=== PATIENT | male | born 1985 | race Hispanic/Latino ===

== ENCOUNTER 2024-09-04 08:53 | Emergency (ER) | payer BC ==
[~2024-09-04] VITALS: Ht 175.3 cm; Wt 120.2 kg
--- NOTE | 2024-09-04 09:27 | ERN ---
ED Note History of Present Illness Stated Complaint: CHEST TIGHTNESS/PRESSURE X ONE WEEK Chief Complaint: Chest Wall Pain Time Seen by MD: 08:56 Dictation: The patient is a 39-year-old male with morbid obesity and no notable medical history who presented to the emergency department today, reporting a primary complaint of pressure type of, left-sided chest pain that has persisted for the past ten days. He has experienced ongoing chest pain for several years; however, the intensity has increased significantly over the last week and a half. The patient characterizes the pain as a sensation of heaviness on his chest, describing it as a compression-type pain rated at 7 out of 10, which radiates to his shoulder and back. He also reports experiencing chest pain during physical exertion and difficulty breathing when active. The patient attributes his condition to work-related stress and anxiety stemming from long hours, indicating a lack of attention to his health. The patient's daughter was concerned about his health and send him to ER for further evaluation. Additionally, he is at high risk for sleep apnea and has not seen a primary care physician due to a lack of insurance. The patient admits to daily marijuana use in relation to his chronic chest pain. Denies any history of heart burn, dizziness, nausea, vomiting, cough, fever, sore throat or recent illnesses. Allergies: Coded Allergies: No Known Allergies (Unverified Allergy, Unknown, 09/04/24) Past Medical History Past Medical History: No Pertinent History Surgical History: Cholecystectomy Surgical History Other: KNEE Review of System Dictation REVIEW OF SYSTEMS CONSTITUTIONAL: Denies fevers, chills, or night sweats. No unintentional weight loss reported. NEUROLOGICAL: Denies headache, amaurosis fugax, motor weakness, sensory deficit, vertigo/spinning sensation, gait abnormalities, or tremors. ENT: No hearing loss, otalgia, otorrhea, rhinitis, rhinorrhea, hoarseness, or sore throat. CARDIOVASCULAR: C/o compression type of chest pain, SOB with exertion, no exertional angina, dyspnea on exertion, orthopnea, paroxysmal nocturnal dyspnea, palpitations, life-threatening arrhythmias, claudication. PULMONARY: Denies any shortness of breath, cough, phlegm/sputum, hemoptysis, pleuritic chest pain. SLEEP: Denies morning headaches, daytime somnolence or napping. Denies difficulty falling asleep, staying asleep, waking from sleep. Denies knowledge of snoring. GASTROINTESTINAL: Denies any type of dysphagia to either liquids or solids. Denies nausea, vomiting, pyrosis, early satiety, abdominal pain, diarrhea, constipation, or changes in stool consistency or caliber. Denies coffee-ground emesis, hematemesis, hematochezia, or melanotic stools. GENITOURINARY: Denies frequency, urgency, nocturia, hematuria or incontinence (Storage/Irritative symptoms.) Low urinary stream, straining to void, urinary intermittency or hesitancy, splitting of the voiding stream, terminal dribbling. ENDOCRINOLOGIC: Denies polyuria, polydipsia, polyphagia or heat/cold intolerances. HEMATOLOGIC: Denies thrombophilia/previous clots, or coagulopathy/bleeding disorders. ONCOLOGIC: Denies personal history of malignancy. DERMATOLOGIC: Denies rashes or pruritus. PSYCHIATRIC: Denies any suicidal or homicidal ideation. Denies hallucinations. Initial Vital Sign VS Vital Signs Date Time Temp Pulse Resp B/P (MAP) Pulse Ox O2 Delivery O2 Flow Rate FiO2 09/04/24 08:54 97.9 52 16 143/73 0 Room Air 0 09/04/24 09:01 21 Physical Exam Dictation PHYSICAL EXAM GENERAL APPEARANCE: The patient is awake, alert, and oriented, in no acute cardiopulmonary distress. NEUROLOGICAL: Cranial nerves II-XII grossly intact. Motor is 5/5 in bilateral upper and lower extremities proximal to distal. No sensory deficits. HEENT: Face is symmetric. Pupils are equal and reactive. Extraocular movements are intact. NECK: Supple. No JVD. No thyromegaly. No submental, submandibular, pre- /postauricular, occipital or supraclavicular lymphadenopathy. CHEST: Normal chest expansion. No Telemetry. LUNGS: Absence of any rales, rhonchi or any wheezing. CARDIOVASCULAR: Regular. S1 and S2 normal. No appreciable rubs, murmurs or gallops. ABDOMEN: Soft, nontender, and nondistended. There is no rebound, voluntary guarding, or rigidity. : Deferred. No Smith. EXTREMITIES: Non-edematous and not cyanotic. No clubbing. Good capillary refill. SKIN: No skin breakdown. Results (Laboratory/Radiology) Laboratory/Radiology Laboratory Tests Test 09/04/24 09:45 White Blood Count 8.6 K/uL (4.8-10.8) Red Blood Count 5.42 MIL/uL (4.50-6.20) Hemoglobin 16.0 g/dL (14.0-18.0) Hematocrit 48.0 % (42-54) Mean Corpuscular Volume 88.6 fL (79-99) Mean Corpuscular Hemoglobin 29.5 pg (27.0-33.0) Mean Corpuscular Hemoglobin Concent 33.3 g/dL (32.0-36.0) Red Cell Distribution Width 14.1 % (11.0-15.5) Platelet Count 141 K/uL (130-400) Mean Platelet Volume 12.0 fL (7.5-10.5) H Immature Granulocyte % (Auto) 0.2 % (0-1) Neutrophils (%) (Auto) 58.7 % (40.0-77.0) Lymphocytes (%) (Auto) 34.0 % (21.0-51.0) Monocytes (%) (Auto) 6.3 % (3.0-13.0) Eosinophils (%) (Auto) 0.5 % (0.0-8.0) Basophils (%) (Auto) 0.3 % (0.0-5.0) Neutrophils # (Auto) 5.0 K/uL (1.8-7.7) Lymphocytes # (Auto) 2.9 K/uL (1.0-4.8) Monocytes # (Auto) 0.5 K/uL (0.1-1.0) Eosinophils # (Auto) 0.04 K/uL (0.00-0.70) Basophils # (Auto) 0.03 K/uL (0.00-0.20) Absolute Immature Granulocyte (auto 0.02 K/uL (0-1) Nucleated Red Blood Cells 0.0 % (0.0-0.19) Sodium Level 139 mmol/L (136-145) Potassium Level 4.2 mmol/L (3.5-5.1) Chloride Level 105 mmol/L (101-111) Carbon Dioxide Level 30 mmol/L (21-32) Blood Urea Nitrogen 12 mg/dL (7-18) Creatinine 1.0 mg/dL (0.5-1.3) Glomerular Filtration Rate Calc 99 mL/min (>90) Random Glucose 108 mg/dL (70-105) H Total Calcium 8.3 mg/dL (8.5-10.1) L Troponin I High Sensitivity 10 ng/L (4-75) Triglycerides Level 144 mg/dL (30-200) Cholesterol Level 141 mg/dL (<200) LDL Cholesterol 82 mg/dL (0-99) HDL Cholesterol 44 mg/dL (29-71) X-RAY Comment: [facility] [address] [place] [address] IMAGING REPORT Signed PATIENT: SHAE SINCLAIR MR#: [id number] : 1985 SEX: M AGE: 39 LOCATION: [facility] ORDER 4 STATUS: REG ER REPORT#: [id number] SERVICE 2 REASON: Chest pain ORDERING PHYSICIAN: GEE TAPIA MD PROCEDURE: CXR1VW - CHEST 1VW CHEST 1VW REASON: Chest pain COMPARISON: None. FINDINGS: Single view of the chest was obtained. Lungs are clear. Heart size is normal. There is no pulmonary vascular congestion. Mediastinum and bony thorax appear unremarkable. IMPRESSION: 1. Normal single view chest x-ray. DICTATED BY: ROSETTA WIN MD DATE: 09/04/24928 ELECTRONICALLY SIGNED BY: ROSETTA WIN MD DATE: 09/04/24931 ED Course ED Course Orders Procedure Category Date Status Time 12 Lead Ekg Tracing- EKG 09/04/24 Complete Technical 08:59 Cbc With Differential LAB 09/04/24 Complete 09:02 Basic Metabolic Panel LAB 09/04/24 Complete 09:02 Troponin I High LAB 09/04/24 Complete Sensitivity 09:02 Lipid Panel LAB 09/04/24 Complete 09:02 Drug Screen Urine LAB 09/04/24 Logged 09:02 Chest 1vw RAD 09/04/24 Resulted 09:03 Ketorolac PHA 09/04/24 Complete Tromethamine 15mg/Ml 11:00 Pantoprazole 40mg Inj PHA 09/04/24 Complete (Protonix 40mg Inj 11:00 Current Medications Medications (Trade) Dose Ordered Sig/Frederick Route PRN Reason Start Time Stop Time Status Last Admin Dose Admin Ketorolac Tromethamine (toRADol) 15 mg ONCE ONCE IV 09/04/24 11:00 09/04/24 11:01 DC 09/04/24 12:21 Pantoprazole Sodium (PROTonix 40MG INJ) 40 mg ONCE ONCE IVP 09/04/24 11:00 09/04/24 11:01 DC 09/04/24 12:21 Vital Signs Date Time Temp Pulse Resp B/P (MAP) Pulse Ox O2 Delivery O2 Flow Rate FiO2 09/04/24 12:37 98.1 56 16 140/72 98 Room Air* 0 21 09/04/24 09:01 97.9 52 16 143/73 98 Room Air* 0 21 09/04/24 08:54 97.9 52 16 143/73 0 Room Air 0 09:20 The patient was assessed in Emergency Department triage room 2 with his at bedside. He appears to be at ease while providing a comprehensive medical history regarding his current condition. Vital signs recorded are as follows: blood pressure 143/73, pulse rate 52, and oxygen saturation at 98% on room air. He reports experiencing a compression-type pain in the left chest, rated at 6 out of 10. The electrocardiogram indicates sinus rhythm. Laboratory tests will be ordered, including complete blood count, basic metabolic panel, troponin levels, urine drug screen, and a chest X-ray, to exclude the possibility of cardiac-related chest pain. Following the results of these tests and further evaluations, we will determine whether the patient necessitates any emergency interventions or inpatient care. Continuous monitoring of the patient will be maintained. 12:00 Radiology investigations and labs did not show any abnormalities. The patient's symptoms appears to be minimally related to cardiac origin and more likely secondary acute stress disorder or GERD. At this time, we think that the patient does not require any emergency treatment or inpatient hospitalization. The results were discussed with the patient. The patient is stable for discharge home. HEART Score Response (Comments) Value EKG: Normal 0 Age: < 45yrs (0) 0 Risk Factors: 1-2 risk factors (+1) 1 Initial Troponin: Normal limit (0) 0 HEART Score Risk: Low Risk for MACE (1-3) Total 1 Medical Decision Making [facility] Differential diagnosis: Chest pain with minimal risk of cardiac etiology, Costochondral chest pain, Acute stress disorder, GERD Rationale: Tests considered and ordered secondary to shared decision making include: Previous outside records reviewed: Old ER visits. Risk of complication and/or morbidity or mortality of patient management: None Medications-Per medication reconciliation Need for hospitalization: Patient does not meet criteria for hospitalization. Need for emergency major/minor surgery: No There are no social concerns with this patient. Prescription drug management Prescriptions will include symptomatic care Patient's prior external medical records from other ER visits were reviewed by me as indicated. Prior testing and results from previous visits were reviewed. Prior tests were taken into account with medical decision making and resource utilization, independent historian/historians were used to obtain complete medical history. I independently interpreted the test that were performed, results were reviewed by me and considered findings on radiology if ordered. DX & DISP Disposition: Discharge Departure Impression: Primary Impression: Chest pain with minimal risk for cardiac etiology Additional Impressions: Acute stress disorder, GERD (gastroesophageal reflux disease), Anxiety, Costochondral chest pain Condition: Stable Additional Instructions: Pain medication: [id number] pain relievers like ibuprofen or acetaminophen can help alleviate discomfort. Heat therapy: After a few days, switch to applying heat to the affected area to promote muscle relaxation. Activity modification: Avoid strenuous activities that cause pain and gradually return to your normal routine as tolerated. Gentle stretching: Once the pain subsides, gentle stretching exercises may be beneficial. Avoid heavy lifting. Consult a doctor if: Pain is severe or doesn't improve with home care. You experience chest pain accompanied by shortness of breath, nausea, or dizzine ss. You have concerns about the cause of your chest pain. Referrals: SELF,REFERRAL (PCP) I have reviewed, & agreed with my scribe's, documentation. I have reviewed the case, and I agree with, Diagnosis and Plan I have examined patient, & reviewed all documents, & agreed W/ the Diagnosis, and Plan GEE TAPIA MD Sep 04, 2024 09:27
--- NOTE | 2024-09-04 09:32 | HMCIMG ---
CHEST 1VW REASON: Chest pain COMPARISON: None. FINDINGS: Single view of the chest was obtained. Lungs are clear. Heart size is normal. There is no pulmonary vascular congestion. Mediastinum and bony thorax appear unremarkable. IMPRESSION: 1. Normal single view chest x-ray.
[2024-09-04 09:54] LABS: BASOPHILS # (AUTO) 0.03 K/uL (0.00-0.20); BASOPHILS % (AUTO) 0.3 % (0.0-5.0); EOSINOPHILS # (AUTO) 0.04 K/uL (0.00-0.70); EOSINOPHILS % (AUTO) 0.5 % (0.0-8.0); IMMATURE GRANULOCYTE ABSOLUTE 0.02 K/uL (0-1); LYMPHOCYTES # (AUTO) 2.9 K/uL (1.0-4.8); MEAN CORPUSCULAR HEMOGLOBIN 29.5 pg (27.0-33.0); MEAN CORPUSCULAR HGB CONC 33.3 g/dL (32.0-36.0); MEAN CORPUSCULAR VOLUME 88.6 fL (79-99); MONOCYTES # (AUTO) 0.5 K/uL (0.1-1.0); MONOCYTES % (AUTO) 6.3 % (3.0-13.0); NEUTROPHILS % (AUTO) 58.7 % (40.0-77.0); PLATELET COUNT (AUTO) 141 K/uL (130-400); RED BLOOD CELL COUNT(AUTO) 5.42 MIL/uL (4.50-6.20); RED CELL DISTRIBUTION WIDTH 14.1 % (11.0-15.5); WHITE BLOOD COUNT (AUTO) 8.6 K/uL (4.8-10.8)
[2024-09-04 10:07] LABS: POTASSIUM 4.2 mmol/L (3.5-5.1)
--- NOTE | 2024-09-04 10:09 | EKG ---
[facility] Test Date: 2024-09-04 Test Time: 09:00:52 Pat Name: SHAE SINCLAIR Department: ED Room: Gender: M [employer]: [id number] : 1985 Requested By: GEE TAPIA Order Number: [id number] Reading MD: Ryan Glover Measurements Intervals [place] Rate: 54 P: 25 HI: 157 QRS: 26 QRSD: 96 T: 34 QT: 414 QTc: 392 Interpretive Statements Sinus rhythm Low voltage, precordial leads Compared to ECG 08/04/2016 04:08:45 Low QRS voltage now present Electronically Signed On 09-05-2024 06:56:15 [employer]IM[employer] by Ryan Glover Please click the below link to view image of tracing.
[2024-09-04] MEDS: PANTOPrazole 40 MG/VIAL IVP ONE (12:21)
[2024-09-04] MEDS: ketOROlac 15MG/ML VIAL (15MG/ML) IV ONE (12:21)
[2024-09-04 14:36] VITALS: BP 140/72; PULSE 66; RESP 16; TEMP 98.3; O2SAT 98
== END 2024-09-04 14:42 | disposition home or self-care (01) ==
LOC: EDH 08:53
DX: F43.0 Acute stress reaction (principal); R07.89 Other chest pain; K21.9 Gastro-esophageal reflux disease without esophagitis; F41.9 Anxiety disorder, unspecified; R07.1 Chest pain on breathing; Z90.49 Acquired absence of other specified parts of digestive tract
CPT/HCPCS: 99284; 96374; 71045; 96375; 80061; 84484; 80048; 85025; 36415; 93005; J1885; J2470